=== PATIENT | female | born 1970 | race Caucasian/White ===

== ENCOUNTER → 2023-08-05 08:30 | Outpatient (REF) | payer OTHER, SELFPAY | LOC: HWWDC 08:30 | PROVIDERS: ATTENDING PHYSICIAN Obstetrics & Gynecology; FAMILY PHYSICIAN Family Medicine | DX: Z12.31 Encounter for screening mammogram for malignant neoplasm of breast (principal) | CPT/HCPCS: 77063; 77067 ==

== ENCOUNTER 2024-02-02 00:26 | Emergency (ER) | payer OTHER, SELFPAY ==
[2024-02-02 00:33] VITALS: BP 130/90
--- NOTE | 2024-02-02 02:13 | ED.GENMED ---
History of Present Illness
General
Chief Complaint: Blood and Body Fluid Exposure
Source: patient
Exam Limitations: none
Time Seen by Provider: 02/02/24 02:07
History of Present Illness
History of Present Illness:
53yoF with a history of hypothyroidism presenting with her after she accidentally struck her right hand with an EpiPen about 2 hours ago. Her son was having allergic reaction this evening. She went to administer the EpiPen to her son when
she accidentally stuck herself with the needle in the webbed space between the right thumb and right index finger. She does not believe she actually injected the medication because she pulled away immediately. She did have a small amount of
bleeding afterwards. Patient is currently asymptomatic and has no complaints. No chest pain or palpitations.
Past History
Past History
ED Past Medical History: Hypothyroidism and Other
ED Past Surgical History:
Social History
Tobacco: Non-smoker
Alcohol: None
Personal:
Living: with family
Phy Exam
General Physical Exam
General Presentation: well appearing and no apparent distress
General age: appears stated age
General Skin: warm and dry
General Habitus: normal
General Mental: alert
ENT Exam
ENT Exam: normocephalic
Pulmonary Exam
Pulmonary Exam: no respiratory distress
Gregoria Coma Scale
Eye Opening: Spontaneous
Verbal Response: Oriented
Motor Response: Obeys Commands
GCS Total Score: 15
Skin Exam
Skin Exam: normal color, warm/dry and other (No puncture wound noted. R hand is warm and well perfused with normal cap refill.)
Psychiatric Exam
Psychiatric Exam: normal mood/affect
Course
Vital Signs
Initial and Last Documented VS:
Initial Vital Signs
Temp Pulse Resp BP Pulse Ox
98 F 70 18 130/90 98
02/02/24 00:33 02/02/24 00:33 02/02/24 00:33 02/02/24 00:33 02/02/24 00:33
Last Documented Vital Signs
Temp Pulse Resp BP Pulse Ox
98 F 65 18 130/90 97
02/02/24 00:33 02/02/24 02:28 02/02/24 00:33 02/02/24 00:33 02/02/24 02:28
MDM/Problems Addressed
Differential Diagnosis Includes:
53yoF here after she accidentally stuck herself in the R hand 2 hours ago while trying to administer an EpiPen to her son. She does not believes that she actually injected the medication. Currently asymptomatic with stable vital signs. R hand is
warm and well perfused on exam without evidence of tissue compromise. Patient provided with reassurance. ED return precautions discussed and she was discharged in stable condition.
*Critical Care Note
Total Time (30-74mins, 75-104mins- exclusive of procedures): Not Applicable
ED Attending Note
-
Portions of this chart may have been created with voice recognition software.� Occasional wrong word or��sound alike� substitutions may have occurred due to the inherent limitations of voice recognition software.
Discharge Plan
Departure
Patient Disposition: Home (Routine Discharge)
Date of Disposition: 02/02/24
Time of Disposition: 02:14
Patient with high blood pressure during this ER visit?: No
Discharge Problem:
Accidental hypodermic needlestick injury
Instructions: How to use an autoinjector
Prescriptions:
No Action
multivitamin 1 EACH tablet
1 ea PO DAILY
Dayquil
2 capsules PO PRN PRN (Reason: 'COLD SYMPTOMS')
Hydrocodone
1 tab PO PRN PRN (Reason: PAIN)
Patient Comments:
PATIENT STATED THIS WAS AN OLD PRESCRIPTION WITH EXPIRATION DATE OF 2 YEARS AGO
Nyquil
2 capsules PO PRN PRN (Reason: 'COLD SYMPTOMS')
Synthroid
PO DAILY
Patient Comments:
PATIENT DOES NOT RECALL DOSAGE, STATED SHE RECENTLY STARTED ON SYNTHROID
Referrals:
Andrea Barry MD [Family Provider] -
Stand Alone Forms: Bl/Fluid Consent/Declination, Blood Body/Fluid Exposure
Activity Restrictions/Additional Instructions:
Please follow-up with your family doctor. Return to the ER with any new or worsening symptoms.
Interventions
Interventions:
*Risk Screen - Suicide Last Done: 02/02/24 00:33
*General Assessment Last Done: 02/02/24 02:28
*Neglect/Abuse Screening Last Done: 02/02/24 00:33
*ED COVID-19 Vaccine History Last Done: 02/02/24 02:28
*Nursing Disposition Last Done: 02/02/24 02:30
ED-EENT Assessment Last Done: 02/02/24 02:28
ED-Skin Assessment Last Done: 02/02/24 02:28
Discharge Date and Time
Discharge Date/Time: 02/02/24 02:31
Print Language: IRISH
== END 2024-02-02 02:31 | disposition home or self-care (01) ==
LOC: EMR 00:26
PROVIDERS: EMERGENCY PHYSICIAN Emergency Medicine; FAMILY PHYSICIAN Family Medicine
DX: Z77.21 Contact with and (suspected) exposure to potentially hazardous body fluids (principal); W46.0XXA Contact with hypodermic needle, initial encounter; Y99.0 Civilian activity done for income or pay; E03.9 Hypothyroidism, unspecified
CPT/HCPCS: 99282

== ENCOUNTER → 2024-09-15 11:08 | Outpatient (REF) | payer OTHER, SELFPAY | LOC: HWWDC 11:08 | PROVIDERS: ATTENDING PHYSICIAN Obstetrics & Gynecology; FAMILY PHYSICIAN Physician Assistant Medical | DX: Z12.31 Encounter for screening mammogram for malignant neoplasm of breast (principal) | CPT/HCPCS: 77063; 77067 ==